=== PATIENT | female | born 1935 | race Caucasian/White ===

== ENCOUNTER 2016-09-19 10:53 | Outpatient (CLI) | payer MEDICARE, BC ==
[2010-03-01 06:25] VITALS: BMI 25.3
== END 2016-09-19 13:50 ==
LOC: D.MAMMO 10:53
DX: Z12.31 Encounter for screening mammogram for malignant neoplasm of breast (principal)

== ENCOUNTER 2018-01-09 19:00 | Outpatient (CLI) | payer MEDICARE, BC ==
[2010-03-01 06:25] VITALS: BMI 25.3
== END 2018-01-09 23:59 | disposition home or self-care (01) ==
LOC: D.MAMMO 19:00
DX: Z12.31 Encounter for screening mammogram for malignant neoplasm of breast (principal)

== ENCOUNTER → 2018-02-10 20:01 | Outpatient (CLI) | payer MEDICARE, BC ==
[2010-03-01 06:25] VITALS: BMI 25.3
== END | disposition home or self-care (01) ==
LOC: D.MAMMO 10:30
DX: R92.8 Other abnormal and inconclusive findings on diagnostic imaging of breast (principal)

== ENCOUNTER 2018-10-15 08:16 | Outpatient (CLI) | payer MEDICARE, BC ==
[~2018-10-15] VITALS: Ht 160 cm; Wt 59.1 kg
--- NOTE | ~2018-10-15 | HEMODYNAMI ---
PATIENT:SINAI CARBAJAL MEDICAL RECORD: [id number] : 35 LOCATION:D.CAT ADMISSION DATE: 10/15/18 Generatedon:10/15/201811:11 Patient name: SINAI CARBAJAL Patient #: [id number] SSN: : Date of study: 10/15/2018 Page: Of Hemodynamic Procedure Report Patient Data Patient Demographics Procedure consent was obtained First Name: SINAI Gender: Female Last Name: RAVEN : 1935 Middle Initial: A Age: 83 year(s) Patient #: [id number] Race: Unknown Additional ID: [id number] Contact details [address]: [address] [place] [address] State: [place] City: [place] Zip code: [address] Past Medical History Allergies Allergen Reaction Date Comments Reported Codeine 10/15/2018 Admission Admission Data Admission Date: 10/15/2018 Admission Time: 8:16 Admit Source: Other Procedure Procedure Types Cath Procedure Diagnostic Procedure PPM/ICD Permanent Pacer Generator Exg. Procedure Description Procedure Date Procedure Date: 10/15/2018 Procedure Start Time: 10:54 Procedure End Time: 11:10 Procedure Staff Name Function Timi Eaton MD Assisting physician Jovani Salmreon RT Monitor Melisa Duarte RN Nurse Israel Holley RT Scrub Suly Pride RT Scrub Gutierrez Prakash MD Performing Physician Procedure Data Cath Procedure Fluoroscopy Diagnostic fluoroscopy Total fluoroscopy Time: 0 time: 0 min min Diagnostic fluoroscopy Total fluoroscopy dose: 0 dose: 0 mGy mGy Estimated blood loss: 5 ml Procedure Complications No complications Procedure Medications Medication Administration Route Dosage Oxygen etCO2 Nasal cannula 2 l/min Lidocaine 1% added to field 20 Ancef (1Gm/50ml NS) I.V.P.B 1 g Ancef Irrigation Topical 1 g (1gm/500ml NS) Versed I.V. 1 mg Fentanyl I.V. 50 mcg Fentanyl I.V. 50 mcg Hemodynamics Rest Heart Rate: 80 (bpm) Snapshots Pre Cath Intra NCS Post Cath Vital Signs Time Heart Resp SPO2 etCO2 NIBP (mmHg) Rhythm Pain Sedation Rate (ipm) (%) (mmHg) Status Level (bpm) 10:42:18 60 14 98 33.2 Measuring Paced 0 (11) 10(A) , No pain 10:42:49 60 13 98 34.7 191/70(91) Paced 0 (11) 10(A) , No pain 10:47:21 60 13 98 33.2 171/67(104) Paced 0 (11) 10(A) , No pain 10:51:47 60 12 97 36.2 174/66(91) Paced 0 (11) 10(A) , No pain 10:56:14 60 13 93 38.5 180/68(106) Paced 0 (11) 9(A) , No pain 11:00:44 59 14 100 28.6 161/61(96) Paced 0 (11) 9(A) , No pain 11:05:04 60 21 100 33.9 170/71(87) Paced 0 (11) 10(A) , No pain 11:09:04 100 36.9 No Cuff Paced 0 (11) 10(A) , No pain Medications Time Medication Route Dose Verified Delivered Reason Notes Effecti veness by by 10:44:38 Oxygen etCO2 2 Timi Vincent used for Nasal l/min Miguel Ángel Duarte RN procedure cannula 10:44:50 Lidocaine added 20ml Timi Capellan for local 1% to vial Miguel Ángel Eaton MD anesthetic field x2 10:45:02 Ancef I.V.P.B 1 g Timi Vincent used for (1Gm/50ml Miguel Ángel Duarte RN procedure NS) 10:45:09 Ancef Topical 1 g Timi Vincent used for Irrigation Miguel Ángel Duarte RN procedure (1gm/500ml NS) 10:54:17 Versed I.V. 1 mg Timi Vincent for Miguel Ángel Duarte RN sedation 10:54:22 Fentanyl I.V. 50 Timi Vincent for mcg Miguel Ángel Duarte RN sedation 10:58:07 Fentanyl I.V. 50 Timi Larryie for mcg Miguel Ángel Duarte RN sedation Procedure Log Time Note 10:29:27 Admit Source: Other 10:30:29 Procedure Status PPM/ Gen Change/ Lead Revision/ Temp. 10:30:31 Melisa Duarte RN sent for patient. Start room use. 10:30:34 Time tracking: Regular hours (M-F 7:00 - 5:00) 10:30:38 Plan of Care:Hemodynamics will remain stable., Cardiac rhythm will remain stable., Comfort level will be maintained., Respiratory function will remain adequate., Patient/ family verbilizes understanding of procedure., Procedure tolerated without complication., Recovers from procedure without complications.. 10:30:41 [employer] branch customer service representative XOCHITL MOORE present for procedure. 10:30:43 Patient received from Pre/Post Procedure Room to CCL 2 Alert and oriented. Tansferred to table in Supine position. 10:30:46 Signed procedure consent form obtained from patient. 10:30:47 Warm blankets applied, and jermaine hugger turned on for patient comfort. 10:30:48 Correct patient and procedure confirmed by team. 10:30:50 ECG and BP/O2 sat monitors applied to patient. 10:36:30 Vital chart was started 10:38:45 Rhythm: paced 10:38:51 Baseline sample Acquired. 10:39:13 Full Disclosure recording started 10:39:16 Baseline sample Acquired. 10:39:30 H&P Date Dictated: 10/08/2018 Within 30 days and on chart., H&P Addendum completed by physician on day of procedure. (MUST COMPLETE FOR ALL OUTPATIENTS). 10:39:31 Pre-procedure instructions explained to patient. 10:39:32 Pre-op teaching completed and patient verbalized understanding. 10:39:36 Family in waiting room. 10:39:39 Patient NPO since Midnight. 10:39:52 Patient allergic to Codeine 10:40:05 Patient diabetic? No. 10:40:09 ----Pre-sedation anethsthesia assessment.---- 10:40:20 Previous problem with sedation/anesthesia? No ? 10:40:38 Snore? Yes 10:40:54 Sleep apnea? Yes 10:40:58 Deviated septum? No 10:41:02 Opens mouth fully? Yes 10:41:05 Sticks out tongue? Yes 10:41:09 Airway obstruction? No ? 10:41:15 Dentures? Yes IN TIGHT 10:41:36 IV patent on arrival in left antecubital with 0.9% NaCl at O. 10:41:55 Left chest area was prepped with chlora-prep and draped in sterile fashion 10:42:05 Alarms reviewed by R. N. 10:42:07 Sharps counted by scrub and verified by R.N. 10:44:38 Oxygen 2 l/min etCO2 Nasal cannula was administered by Melisa Daurte RN; used for procedure; 10:44:50 Lidocaine 1% 20ml vial x2 added to field was administered by Timi Eaton MD; for local anesthetic; 10:45:02 Ancef (1Gm/50ml NS) 1 g I.V.P.B was administered by Melisa Duarte RN; used for procedure; 10:45:09 Ancef Irrigation (1gm/500ml NS) 1 g Topical was administered by Melisa Duarte RN; used for procedure; 10:49:09 Use device set MIGUEL ÁNGEL PPM 10:49:49 2-0 Ticron Multipack ([id number]) opened to sterile field. 10:49:50 3-0 Vicryl Single Pack [id number] opened to sterile field. 10:49:50 5-0 Monocryl PS2 [id number] opened to sterile field. 10:49:51 Cautery Tip Enrobing Machine Operator opened to sterile field. 10:49:51 Cautery Pushbutton Pencil opened to sterile field. 10:49:52 Mepilex Dressing ([id number]) opened to sterile field. 10:50:09 --------ALL STOP TIME OUT------ 10:50:10 Final Timeout: patient, procedure, and site verified with staff and physician. All members of the team are in agreement. 10:50:18 Left groin site verified by team. 10:50:36 Fire Safety Assessment: A--An alcohol-based skin anteseptic being used preoperatively., B--The operative or invasive procedure is being performed above the xiphoid process or in the oropharynx. 10:51:35 Physical assessment completed. ASA score P 2 - A patient with mild systemic disease as per Timi Eaton MD. 10:51:44 Sedation plan: IV Moderate Sedation Medication:Versed, Fentanyl 10:53:[address] Generator [id number] opened to sterile field. 10:54:06 Pre sharps counted by scrub and verified by RN: Sutures: 7; Sponges: 5; Stick needles: 0; Skin needles: 2; Blade: 1; Cautery: 1 10:54:10 Grounding pad site Left thigh. 10:54:11 Grounding pad site free from injury. 10:54:14 Procedure started. 10:54:17 Versed 1 mg I.V. was administered by Melisa Duarte RN; for sedation; 10:54:19 Lidocaine 1% was administered to left subclavicular area by Timi Eaton MD . 10:54:22 Fentanyl 50 mcg I.V. was administered by Melisa Duarte RN; for sedation; 10:55:16 Incision made to left subclavicular area. 10:58:04 Generator pocket made/opened. 10:58:07 Fentanyl 50 mcg I.V. was administered by Melisa Duarte RN; for sedation; 10:59:12 Device removed from pocket and disconnected from leads. 10:59:21 PPM Dual was attached to lead(s) and inserted into pocket. 11:00:14 Device pocket was irrigated with Ancef. 11:00:20 Generator was sutured in place with 2-0 ticron. 11:04:00 Subcutaneous closure was completed with 3-0 vicryl. 11:05:36 Skin closure was completed with 5-0 monocryl. 11:06:09 Lt Chest incision was dressed with 4 x 4 and Tegaderm. 11:06:31 Procedure ended.(Physican Out) 11:06:41 Fluoroscopy time 00.00 minutes. 11:06:43 Fluoroscopy dose: 0 mGy 11:06:43 Flurop Dose total: 0 11:07:02 Sharps counted by scrub and verified by R.N. 11:07:14 Post sharps counted by scrub and verified by RN: Sutures: 7; Sponges: 5; Stick needles: 0; Skin needles: 2; Blade: 1; Cautery: 1 11:08:54 Insertion/operative site no bleeding no hematoma. 11:08:59 Vital chart was stopped 11:09:04 Post Procedure Pulses reassessed and unchanged 11:09:06 Post-procedure physical assessment completed. ASA score P 2 - A patient with mild systemic disease as per Timi Eaton MD. 11:09:09 Post procedure rhythm: paced 11:09:11 Estimated blood loss: 5 ml 11:09:18 Post procedure instruction explained to patient.Patient verbalizes understanding. 11:09:18 Patient needs reinforcement of post procedure teaching. 11:09:47 Procedure and supply charges have been captured, reviewed, submitted and are correct. 11:09:50 Procedure Complication : No complications 11:10:40 See physician's report for complete and final results. 11:10:48 Report given to Pre/Post Procedure Room. 11:10:51 Patient transfered to Pre/Post Procedure Room with Stretcher. 11:10:53 Procedure ended. 11:10:53 Full Disclosure recording stopped 11:11:10 End room use (Document Last) Device Usage Item Name Manufacture Quantity Catalog Hospital Part Current Minima l Lot# / Number Charge Number Stock Stock Serial# Code 2-0 Ticron Ethicon 4 [id number] 5 Multipack ([id number]) 3-0 Vicryl Ethicon 1 [id number] [id number] [id number] 5 Single Pack [id number] 5-0 Monocryl Ethicon 1 [id number] 128997 594610 265921 5 PS2 [id number] Cautery Tip Microtek 1 [id number] [id number] 332909 498654 5 Enrobing Machine [employer] Cautery Microtek 1 [id number] 25196 [id number] 5 Pushbutton [employer] Pencil Mepilex Cardinal 1 [id number] 301050 515324 256831 5 Dressing Health ([id number]) Medtronic Medtronic 1 [id number] [id number] [id number] 162476 [id number] EXP Generator 01-05-20 [id number] Signature Audit [place] Stage Time Signature Unsigned Intra-Procedure 10/15/2018 Israel Holley 11:11:42 AM RT(R) Signatures Monitor : Jovani Salmeron RT Signature : Date : Time : Nurse : Melisa Duarte RN Signature : Date : Time : Performing Physician : Signature : Gutierrez Prakash MD Date : Time : [address] [address] [place] [address]
[2018-10-15] MEDS ORDERED: LEXAPRO10 MG (08:36)
[2018-10-15] MEDS ORDERED: PEPCID AC20 MG PO (08:38)
[2018-10-15] MEDS ORDERED: ADVIL100 M1 PO (08:38)
[2018-10-15] MEDS ORDERED: ZOCOR10 MG PO (08:39)
[2018-10-15] MEDS ORDERED: TRUSOPT 2 % OPT10 ML EACH EYE (08:39)
[2018-10-15] MEDS ORDERED: TRAZODONE HCL150 MG PO (08:39)
[2018-10-15] MEDS ORDERED: XALATAN 0.0052.5 ML EACH EYE (08:40)
[2018-10-15 08:48] VITALS: BP 170/67; Ht 160 cm; Wt 59.1 kg
[2018-10-15 09:02] LABS: HEMATOCRIT 36.9 % (36.0-48.0); HEMOGLOBIN 12.5 g/dL (12-16); MCH 29.3 pg (26.0-34.0); MCHC 33.9 g/dL (31.0-37.0); MCV 86.4 fL (80.0-100.0); MEAN PLATELET VOLUME 10.5 fL (7.4-10.4); PLATELET COUNT 99 10x3/uL (130-400); RBC 4.27 10x6/uL (4.00-5.40); RDW 13.9 % (11.5-14.5); WBC 6.3 10x3/uL (4.8-10.8)
[2018-10-15 09:18] LABS: ANION GAP 9.5 mmol/L (8-16); CALCIUM 8.5 mg/dL (8.5-10.1); CARBON DIOXIDE 29.6 mmol/L (21.0-32.0); POTASSIUM - SERUM 4.1 mmol/L (3.5-5.1)
[2018-10-15 09:19] LABS: PLATELET ESTIMATE DECREASED
[2018-10-15 09:26] LABS: APTT 24.4 SECONDS (22.8-39.4); INR 1.13 (0.85-1.17)
[2018-10-15] MEDS ORDERED: ULTRAM50 MG PO (11:06)
--- NOTE | 2018-10-15 11:20 | NUR ---
PHYSICIAN AT BEDSIDE TO UPDATE PATIENT FAMILY. PATIENT ARRIVED TO ROOM 5, PLACED ON CM.
--- NOTE | 2018-10-15 11:35 | NUR ---
PATIENT AWAKE, EATING TURKEY SANDWICH AND DRINKING WATER. VSS ON ROOM AIR. LEFT UPPER CHEST DRESSING IS CDI.
--- NOTE | 2018-10-15 12:05 | NUR ---
PATIENT AWAKE, SITTING UP IN BED WITH AT BEDSIDE. VSS ON ROOM AIR. LEFT UPPER CHEST DRESSING IS CDI, NO S/S OF BLEEDING OR HEMATOMA.
--- NOTE | 2018-10-15 12:20 | NUR ---
IV REMOVED. WRITTEN AND VERBAL DISCHARGE INSTRUCTIONS GIVEN TO PATIENT, PATIENT VOICES UNDERSTANDING. PATIENT VOIDED WITHOUT DIFFICULTY. MONITOR REMOVED FOR PATIENT TO GET DRESSED.
--- NOTE | 2018-10-15 12:26 | NUR ---
PATIENT TRANSPORTED VIA WHEELCHAIR TO CAR WITH SPOUSE DRIVING, ALL BELONGINGS WITH PATIENT.
--- NOTE | 2018-10-16 12:15 | OP ---
PATIENT NAME: SINAI CARBAJAL MEDICAL RECORD: [id number] :35 LOCATION:D.CAT ADMISSION DATE: SURGEON: JUDY DEL ROSARIO MD DATE OF OPERATION: 10/15/2018 PREOPERATIVE DIAGNOSES: 1. End-of-life generator. 2. Hypercholesterolemia. POSTOPERATIVE DIAGNOSES: 1. End-of-life generator. 2. Hypercholesterolemia. PROCEDURE: Left subclavian vein dual lead pacemaker generator exchange. SURGEON: Judy Del Rosario MD REPORT OF PROCEDURE: The patient's left chest was prepped and draped in sterile fashion. A total of 20 mL of 1% lidocaine with epinephrine was infused into the surrounding tissues and the left upper outer chest. A skin incision was made in transverse fashion overlying the pacemaker. The pacemaker was dissected down using electrocautery and was eviscerated through the wound. We then removed the leads and placed them on a new pacemaker generator and placed this in the subcutaneous pouch. We sutured the pacemaker to the pectoral fascia using a single interrupted 0 Ti-Cron. The subcutaneous tissues were irrigated out and then reapproximated with interrupted 3-0 Vicryl. The skin was closed with running subcutaneous 5-0 Monocryl. COMPLICATIONS: None. CONDITION: Stable. ANESTHESIA: Local MAC. BLOOD LOSS: Minimal. TRANSINT:[id number] Voice Confirmation ID: [id number] DOCUMENT ID: [id number] JUDY DEL ROSARIO MD at 1215 CC: CHARO WADSWORTH [id number] DICTATION DATE: 10/15/18 1109 PSYCHIATRIC TECHNICIAN: 10/15/18 1138 DEP CLI 10/15/18 [address] [place] [address]
== END 2018-10-15 12:26 | disposition home or self-care (01) ==
LOC: D.CATH 08:16
PROVIDERS: ATTEND Internal Medicine Interventional Cardiology
DX: Z45.010 Encounter for checking and testing of cardiac pacemaker pulse generator [battery] (principal); E78.00 Pure hypercholesterolemia, unspecified; Z01.812 Encounter for preprocedural laboratory examination

== ENCOUNTER 2019-03-31 08:00 | Outpatient (CLI) | payer MEDICARE, BC ==
[2018-10-15 08:48] VITALS: BMI 23.0
[~2019-03-31 08:00] MED LIST: ADVIL100 M1 PO; LEXAPRO10 MG; PEPCID AC20 MG PO; TRAZODONE HCL150 MG PO; TRUSOPT 2 % OPT10 ML EACH EYE; ULTRAM50 MG PO; XALATAN 0.0052.5 ML EACH EYE; ZOCOR10 MG PO
== END 2019-03-31 23:59 | disposition home or self-care (01) ==
LOC: D.MAMMO 08:00
PROVIDERS: ATTEND Family Medicine
DX: Z12.31 Encounter for screening mammogram for malignant neoplasm of breast (principal)

== ENCOUNTER → 2019-04-08 11:15 | Outpatient (CLI) | payer MEDICARE, BC ==
[2018-10-15 08:48] VITALS: BMI 23.0
== END | disposition home or self-care (01) ==
LOC: D.LAB 11:15
PROVIDERS: ATTEND Family Medicine
DX: R19.7 Diarrhea, unspecified (principal); E80.4 Gilbert syndrome